=== PATIENT | male | born 1980 | race Caucasian/White ===

== ENCOUNTER 2020-01-19 09:59 | Outpatient (REF) | payer OTHER, SELFPAY ==
[2020-01-19 11:49] LABS: HBS Num1 130.06 mIU/mL (0-7.99); ~Hepatitis B Surface Antibody REACTIVE (Nonreactive)
[2020-01-20 22:14] LABS: Mumps Virus IgG Antibody <9.00 AU/mL; Rubella IgG Antibody 5.55 Index
[2020-01-21 21:43] LABS: TS Negative Control Passed; TS Panel A 0; TS Panel B 0; TS Positive Control Passed; TSpotTB Negative (SeeBelow)
== END 2020-01-19 10:00 | disposition home or self-care (01) ==
LOC: HO.HMGCLDS 09:59
PROVIDERS: PCP Internal Medicine; Visit Provider Internal Medicine
DX: Z01.84 Encounter for antibody response examination (principal)
CPT/HCPCS: 86481; 86706; 86735; 86762; 86765; 86787